=== PATIENT | female | born 1955 | race Caucasian/White ===

== ENCOUNTER 2022-04-27 12:16 | Emergency (ER) | payer OTHER ==
[2022-04-27 12:25] VITALS: BP 111/80; PULSE 58; RESP 20; TEMP 98.2; BMI 38.6
[2022-04-27] MEDS ORDERED: IBUPROFEN 400 MG TABLET (FP) PO ONE ×2 (12:46→12:50)
[2022-04-27 13:40] LABS: HEMOGLOBIN 14.7 G/dL (10.7-15.3); MCH 32.1 pg (25.7-33.7); MCHC 35.1 g/dl (32.0-36.0); MEAN CELL VOLUME 91.6 fl (80-96); MEAN PLT VOLUME 7.8 fl (7.5-11.1); PLATELET COUNT 234.7 10^3/uL (134-434); RBC 4.59 10^6/uL (3.60-5.2); RDW 14.1 % (11.6-15.6)
[2022-04-27 13:41] LABS: ALBUMIN 3.8 g/dl (3.4-5.0); BILIRUBIN,TOTAL 0.7 mg/dl (0.2-1); CALCIUM 8.9 mg/dl (8.5-10); CREATININE 0.7 mg/dl (0.55-1.3); TOT PROT 6.9 g/dl (6.4-8.2)
[2022-04-27 15:01] LABS: EPITHELIAL CELLS FEW /hpf
== END 2022-04-27 14:45 | disposition home or self-care (01) ==
LOC: FER 12:16
DX: S39.011A Strain of muscle, fascia and tendon of abdomen, initial encounter (principal)
CPT/HCPCS: 36415; 73502-TC-LT-FY; 80053; 81003; 81015; 85027; 99284-25

== ENCOUNTER 2022-05-31 14:09 | Emergency (ER) | payer OTHER ==
[2022-05-31 14:25] VITALS: BP 115/76; PULSE 53; RESP 18; TEMP 98.2; BMI 37.8
[2022-05-31] MEDS ORDERED: ACETAMINOPHEN 1000 MG/100 ML BAG IVPB ONE (17:11)
[2022-05-31 17:40] LABS: BASO % 0.6 % (0-2.0); EOS % 2.3 % (0-4.5); HEMATOCRIT 43.2 % (32.4-45.2); HEMOGLOBIN 14.5 GM/dL (10.7-15.3); LYMPH % 33.3 % (8-40); MCH 30.9 pg (25.7-33.7); MCHC 33.6 g/dl (32.0-36.0); MEAN CELL VOLUME 91.8 fl (80-96); MEAN PLT VOLUME 7.8 fl (7.5-11.1); MONO % 6.4 % (3.8-10.2); NEUT % 57.4 % (42.8-82.8); PLATELET COUNT 269 10^3/uL (134-434); RBC 4.71 M/mm3 (3.60-5.2); WHITE BLOOD COUNT 6.5 K/mm3 (4.0-10.0)
[2022-05-31 17:46] LABS: EPI CELLS 8 /uL (0-25.1); HYALINE CASTS 0 /uL (0-3.1); URINE APPEARANCE Error; URINE BACTERIA 10 /uL (0-1359); URINE BILIRUBIN NEGATIVE (NEGATIVE); URINE COLOR YELLOW; URINE GLUCOSE (UA) NEGATIVE (NEGATIVE); URINE KETONE NEGATIVE (NEGATIVE); URINE LEUK ESTERASE 1+ (NEGATIVE); URINE NITRITE NEGATIVE (NEGATIVE); URINE PROTEIN NEGATIVE (NEGATIVE); URINE RBC 6 /uL (0-23.9); URINE UROBILINOGEN 0.2 mg/dL (0.2-1.0); URINE WBC 42 /uL (0-25.8)
[2022-05-31 17:47] LABS: INR 1.01 (0.83-1.09); PROTHROMBIN TIME (PATIENT) 11.6 SEC (9.7-13.0)
[2022-05-31 17:50] LABS: ACTIVATED PTT 29.7 SECONDS (25.2-36.5)
[2022-05-31 18:01] LABS: ALBUMIN 3.9 g/dl (3.4-5.0); BLOOD UREA NITROGEN 13.2 mg/dL (7-18)
[2022-05-31 18:04] LABS: CREATININE 0.7 mg/dL (0.55-1.3)
[2022-05-31 18:07] LABS: BILIRUBIN,TOTAL 0.3 mg/dL (0.2-1); TOT PROT 7.6 g/dl (6.4-8.2)
[2022-05-31] MEDS ORDERED: ACETAMINOPHEN INJECTION 100 ML IVPB ONE (19:00)
[2022-05-31] MEDS ORDERED: CEFTRIAXONE 1,000 MG in DEXTROSE 5%-WATER - 50 ML IVPB ONE (20:01)
[2022-05-31] MEDS ORDERED: CEFTRIAXONE 1 GM/50 ML BAG ONE (21:11)
== END 2022-06-01 00:18 | disposition home or self-care (01) ==
LOC: JER 14:09
PROC: 3E0333Z Introduction of Anti-inflammatory into Peripheral Vein, Percutaneous Approach (ICD-10-PCS; principal; 2022-05-31)
PROC: 3E03329 Introduction of Other Anti-infective into Peripheral Vein, Percutaneous Approach (ICD-10-PCS; 2022-05-31)
DX: N39.0 Urinary tract infection, site not specified (principal); R10.9 Unspecified abdominal pain
CPT/HCPCS: 36415; 71260-TC; 74177-TC; 80053; 81003; 85025; 85610; 85730; 87086; 99285-25

== ENCOUNTER 2023-09-05 09:15 | Emergency (ER) | payer OTHER, MEDICARE ==
[2023-09-05 09:27] VITALS: BP 113/71; PULSE 54; RESP 20; TEMP 98.5; BMI 34.3
[2023-09-05 10:27] LABS: HEMATOCRIT 43.5 % (32.4-45.2); HEMOGLOBIN 14.5 G/dL (10.7-15.3); MCH 31.1 pg (25.7-33.7); MCHC 33.2 g/dl (32.0-36.0); MEAN CELL VOLUME 93.5 fl (80-96); PLATELET COUNT 227.9 10^3/uL (134-434); RBC 4.65 10^6/uL (3.60-5.2); RDW 14.6 % (11.6-15.6); WHITE BLOOD COUNT 6.2 10^3/uL (4.0-10.8)
[2023-09-05 10:56] LABS: ALBUMIN 4.5 g/dl (3.4-5.0); BILIRUBIN,TOTAL 0.4 mg/dl (0.2-1); CALCIUM 9.6 mg/dl (8.5-10.1); CREATININE 0.7 mg/dl (0.6-1.3); POTASSIUM 4.2 mmol/L (3.5-5.1); TOT PROT 6.9 g/dl (6.4-8.2)
[2023-09-05 15:00] LABS: N-TERMINAL BNP 33.9 pg/ml (5-125)
== END 2023-09-05 13:35 | disposition home or self-care (01) ==
LOC: FER 09:15
DX: R06.02 Shortness of breath (principal); R05.9 Cough, unspecified; M54.6 Pain in thoracic spine; Z20.822 Contact with and (suspected) exposure to COVID-19
CPT/HCPCS: 0241U-QW; 36415; 71046-TC-FY; 80053; 83880; 84484; 85027; 93005; 99285-25